=== PATIENT | female | born 1985 | race Caucasian/White ===

== ENCOUNTER 2021-01-03 16:21 | Emergency (ER) | payer SELFPAY ==
[2021-01-04] MEDS ORDERED: OMNICEF 300 MG300 MG PO (22:50)
== END 2021-01-03 20:37 | disposition left against medical advice (07) ==
LOC: ER1 16:21
DX: Z53.21 Procedure and treatment not carried out due to patient leaving prior to being seen by health care provider (principal)

== ENCOUNTER 2021-01-04 17:15 | Emergency (ER) | payer OTHER ==
[2021-01-04 17:43] LABS: HEMOGLOBIN 10.1 gm/dl (12.3-15.3); RED BLOOD COUNT 4.35 M/UL (4.00-5.10)
[2021-01-04 18:17] LABS: BUN/CREATININE RATIO 16 (0-10)
[2021-01-04] MEDS ORDERED: OMNICEF 300 MG300 MG PO (22:50)
== END 2021-01-04 23:00 | disposition home or self-care (01) ==
LOC: ER1 17:15
PROVIDERS: Physician Assistant
DX: N12 Tubulo-interstitial nephritis, not specified as acute or chronic (principal); R07.9 Chest pain, unspecified; R06.02 Shortness of breath; I25.10 Atherosclerotic heart disease of native coronary artery without angina pectoris; F17.200 Nicotine dependence, unspecified, uncomplicated; Z20.822 Contact with and (suspected) exposure to COVID-19
CPT/HCPCS: 71045; 80053; 81001; 82550; 82553; 83690; 83874; 83880; 84484; 84702; 85025; 85379; 93005; 96374; 99285; J0696; Q9967; U0002

== ENCOUNTER 2021-01-23 14:06 | Emergency (ER) | payer SELFPAY ==
[~2021-01-23 14:06] MED LIST: OMNICEF 300 MG300 MG PO
== END 2021-01-23 14:50 | disposition home or self-care (01) ==
LOC: ER1 14:06
DX: R05 Cough (principal); R11.2 Nausea with vomiting, unspecified; Z20.822 Contact with and (suspected) exposure to COVID-19; F17.200 Nicotine dependence, unspecified, uncomplicated; Z90.89 Acquired absence of other organs; Z88.1 Allergy status to other antibiotic agents
CPT/HCPCS: 99283; U0003

== ENCOUNTER 2021-01-26 23:55 | Emergency (ER) | payer SELFPAY | END 2021-01-27 00:10 | disposition left against medical advice (07) | LOC: ER1 23:55 | DX: Z53.21 Procedure and treatment not carried out due to patient leaving prior to being seen by health care provider (principal) ==